=== PATIENT | male | born 2000 | race Two or more races ===

== ENCOUNTER 2022-03-28 16:10 | Emergency (ER) | payer OTHER ==
[~2022-03-28] VITALS: Ht 172.7 cm; Wt 59.0 kg
== END 2022-03-28 18:34 | disposition home or self-care (01) ==
LOC: ER 16:10 → EMR PED 16:14
DX: S01.81XA Laceration without foreign body of other part of head, initial encounter (principal); V00.131A Fall from skateboard, initial encounter; Y93.I9 Activity, other involving external motion; Y92.9 Unspecified place or not applicable

== ENCOUNTER 2022-04-11 11:16 | Emergency (ER) | payer OTHER ==
[~2022-04-11] VITALS: Ht 172.7 cm; Wt 59.0 kg
== END 2022-04-11 12:46 | disposition home or self-care (01) ==
LOC: EMR PED 11:16
DX: Z48.02 Encounter for removal of sutures (principal)

== ENCOUNTER 2023-08-13 12:22 | Emergency (ER) | payer OTHER ==
[~2023-08-13] VITALS: Ht 172.7 cm; Wt 65.8 kg
[2023-08-13] MEDS ORDERED: KETOROLAC TROMETHAMINE 60 MG VIAL IM ONE (17:00)
== END 2023-08-13 17:44 | disposition home or self-care (01) ==
LOC: ER 12:22
DX: S90.852A Superficial foreign body, left foot, initial encounter (principal)
CPT/HCPCS: 96372; 99282; J1885